=== PATIENT | male | born 1965 | race African-American/Black ===

== ENCOUNTER 2016-10-23 08:22 | Emergency (ER) | payer OTHER, MEDICAID ==
[2016-10-23] MEDS ORDERED: KETOROLAC TROMETHAMINE 60 MG/2 ML SDV IM ONE (09:02)
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
[2016-10-23 11:17] VITALS: BP 156/69
== END 2016-10-23 11:30 | disposition home or self-care (01) ==
LOC: ER 08:22
DX: M54.2 Cervicalgia (principal); M54.6 Pain in thoracic spine; M79.1 Myalgia; F17.210 Nicotine dependence, cigarettes, uncomplicated; V89.2XXA Person injured in unspecified motor-vehicle accident, traffic, initial encounter; I10 Essential (primary) hypertension
CPT/HCPCS: 99283; 96372; 82962; 72050; 72070; J1885